=== PATIENT | male | born 1940 | race Caucasian/White ===

== ENCOUNTER 2024-03-14 01:36 | Inpatient (IN) | payer MEDICARE, SELFPAY ==
[2024-03-13 20:29] VITALS: BP 94/51
[2024-03-13 20:44] VITALS: BP 106/53
[2024-03-13 21:04] VITALS: BMI 22.8
[2024-03-13] MEDS: NSS 500 IV (21:07)
[2024-03-13 21:11] LABS: % Basophils 0.3 % (0-2); % Immature Granulocytes 0.5 % (0-0.5); % Lymphocytes 6.7 % (20.5-51.1); % Monocytes 8.8 % (1.7-9.3); % Neutrophils 82.7 % (42.2-75.2); Absolute Eosinophils 0.2 10^3/uL (0-0.7); Absolute Immature Granulocytes 0.1 10^3/uL (0-0.05); Absolute Monocytes 1.4 10^3/uL (0.1-0.6); Absolute Neutrophils 12.7 10^3/uL (1.4-6.5); Hematocrit 32.2 % (39.0-52.0); Hemoglobin 11.1 g/dL (13.0-18.0); Mean Corp Hgb Conc. 34.5 g/dL (33.0-37.0); Mean Corpuscular Hgb 32.1 pg (27.0-31.0); Mean Corpuscular Volume 93.1 fL (80.0-94.0); Mean Platelet Volume 8.6 fL (7.4-10.4); Nucleated Red Blood Cells % 0 % (-); Platelet Count 303 10^3/uL (130-400); Red Blood Cell Count 3.46 10^6/uL (4.70-6.10); Red Cell Dist. Width 12.2 % (11.5-14.5); White Blood Cell Count 15.3 10^3/uL (4.8-10.8)
--- NOTE | 2024-03-13 21:11 | PHANOTE ---
Med Rec Note:
Unable to confirm pt's Eliquis and Prednisone with pharmacy, tried to call [id number] in [place], pharmacy closed at this time. Medications not listed in Dr Peterson, pt not seen recently in [facility].
Eliquis and Prednisone left unconfirmed.
[2024-03-13 21:23] LABS: Lactic Acid 2.2 mmol/L (0.7-2.0)
[2024-03-13 21:30] LABS: ALT (SGPT) 33 U/L (0-50); AST (SGOT) 76 U/L (17-59); Albumin 3.8 g/dl (3.5-5.0); Alkaline Phosphatase 124 U/L (38-126); Blood Urea Nitrogen 45 mg/dl (9-20); Calcium 9.8 mg/dl (8.4-10.2); Carbon Dioxide 23 mmol/L (22-30); Chloride 97 mmol/L (98-107); Estimated Creatinine Clearance 20 ml/min; Glucose 94 mg/dl (70-99); Potassium 5.4 mmol/L (3.5-5.1); Sodium 132 mmol/L (135-145); Total Bilirubin 1.2 mg/dl (0.2-1.3); Total Protein 6.8 g/dl (6.3-8.2); eGFR 19.98
--- NOTE | 2024-03-13 21:55 | ED.GENMED ---
History of Present Illness
General
Chief Complaint: Skin Problem
Time Seen by Provider: 03/13/24 20:41
Travel History
Have you had any contact with someone who has COVID-19?: No
Do you have any symptoms of coronavirus? Fever > 100 degrees, chills, cough, shortness of breath, sore throat, loss of taste or smell, muscle aches, or headache?: No
History of Present Illness
History of Present Illness:
83-year-old male history of hypertension, atrial fibrillation on Eliquis presenting with pain, swelling and discharge from left buttock starting 1 week ago. Patient states that he went to his primary care doctor today and was sent to the ER for
further evaluation. Patient denies chest pain, shortness of breath, dizziness, cough, abdominal pain, nausea, vomiting or urinary symptoms. 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
Past History
Past History
ED Past Medical History: HTN
ED Past Surgical History: None
Social History
Tobacco: Non-smoker
Phy Exam
Physical Exam
Physical Exam:
General: Alert, no acute distress
Head: NCAT
Eyes: clear conjunctiva
Neck: supple
Cardiac: tachycardic, irregularly irregular rhythm, no murmur
Lungs: diffuse wheezing. Speaking full unlabored sentences. No respiratory distress.
Abdomen: soft, nondistended nontender. No rebound or guarding.
: swelling, induration, erythema to left buttock draining purulent discharge. does not involve perineum or scrotum
MSK: no lower extremity edema bilaterally. No deformity
Skin: warm, dry
Neuro: Alert and oriented x3. no focal deficits
Mathematics Lecturer present during physical exam.
Course
Orders/Labs/Results
Orders:
Orders
03/13/24 21:01
CBC/With Diff [Complete Blood Count/With Diff] Urgent
CMP [Comprehensive Metabolic Panel] Urgent
Lactate Level [Lactic Acid] Urgent
Blood Culture Urgent
SHEFALI Source: Blood/Venous
Specimen Description:
03/13/24 21:05
0.9% Sodium Chloride 500 ml [Nss] 500 ml IV BOLUS
03/13/24 21:41
Abdomen/Pelvis wo Contrast CT [CT Abd/pelvis Wo Iv Cont] Urgent
Comment:
Reason For Exam: swelling/pain/discharge right buttock
03/13/24 21:42
MetroNIDAZOLE 250 MG/50 ML [Flagyl 250 mg] 50 ml IV NOW
03/13/24 21:43
EKG [Electrocardiogram (*1)] Urgent
Reason for Study: Tachycardia
03/13/24 21:48
Blood Culture Urgent
SHEFALI Source: Blood/Venous
Specimen Description:
Wound/Abscess/Other Culture Urgent
SHEFALI Source: Abscess
Specimen Description:
Date Specimen was Collected: 03/13/24
Time Specimen was Collected: 21:33
03/13/24 22:36
Ciprofloxacin 400 mg/[id number] [Cipro 400 mg] 200 ml IV NOW
03/14/24 02:00
VANCOMYCIN Pharmacy to Dose [VANCOCIN Pharmacy to Dose] 1 each Pharmacy To Prepare [Call Pharmacy To Prepare] 0 ml IV PER PROTOCOL
Abnormal Lab Results
03/13/24
21:01
WBC 15.3 H 10^3/uL
(4.8-10.8)
RBC 3.46 L 10^6/uL
(4.70-6.10)
Hgb 11.1 L g/dL
(13.0-18.0)
Hct 32.2 L %
(39.0-52.0)
MCH 32.1 H pg
(27.0-31.0)
Abs Immat Gran (auto) 0.1 H 10^3/uL
(0-0.05)
Absolute Neuts (auto) 12.7 H 10^3/uL
(1.4-6.5)
Absolute Lymphs (auto) 1.0 L 10^3/uL
(1.2-3.4)
Absolute Monos (auto) 1.4 H 10^3/uL
(0.1-0.6)
Neutrophils % 82.7 H %
(42.2-75.2)
Lymphocytes % 6.7 L %
(20.5-51.1)
Sodium 132 L mmol/L
(135-145)
Potassium 5.4 H mmol/L
(3.5-5.1)
Chloride 97 L mmol/L
(98-107)
BUN 45 H mg/dl
(9-20)
Creatinine 3.0 H mg/dL
(0.7-1.3)
Lactic Acid 2.2 H mmol/L
(0.7-2.0)
AST 76 H U/L
(17-59)
03/13/24 21:01
03/13/24 21:01
Vital Signs
Initial and Last Documented VS:
Initial Vital Signs
Temp Pulse Resp BP Pulse Ox
99.4 F 117 20 94/51 95
03/13/24 20:29 03/13/24 20:29 03/13/24 20:29 03/13/24 20:29 03/13/24 20:29
Last Documented Vital Signs
Temp Pulse Resp BP Pulse Ox
98.4 F 107 16 116/71 92
03/13/24 23:39 03/13/24 23:34 03/13/24 23:34 03/13/24 23:34 03/13/24 23:34
Comment
Comment:
Patient presents to the Emergency Department with __abscess to buttocks
Number and Complexity of Problems Addressed at the Encounter
� Chronic conditions affecting care:
� Acute Exacerbation and/or Progression of Chronic Illness:
� Differential Diagnosis includes: Perianal abscess, cellulitis
Amount and/or Complexity of Data to be Reviewed and Analyzed
� I performed an independent evaluation of and my interpretation is:
EKG:
CT:
Xrays:
Laboratory Studies: WBC 15.3, lactate 2.2. Creatinine 3 (unknown baseline) with sodium 132 potassium 5.4
Other:
� Review of other/old records reveals:
� Clinical information was obtained by an independent historian:
� Prescriptions/Medications Considered but not given:flox
� Further testing considered but not performed:
Risk of Complications and/or Morbidity or Mortality of Patient Management
� Social Determinants of health affecting care:
� Discussion with other providers (PCP, Hospitalists, Consultants, etc):
� Escalation of care including admission/observation vs risk of discharge considered: 83-year-old male history of atrial fibrillation presenting with increased pain, drainage, and swelling to left buttock over the past 1 week. Patient arrived
tachycardic 90s-120s. Concern for perirectal abscess, started Ciprofloxain and Flagyl. Ordered CT abdomen/pelvis to assess depth of abscess. CT abdomen/pelvis shows decubitus ulcer with cellulitis, no drainable fluid collection. Ordered vancomycin.
Case discussed with hospitalist.
*Critical Care Note
Total Time (30-74mins, 75-104mins- exclusive of procedures): Not Applicable
ED Attending Note
-
Portions of this chart may have been created with voice recognition software.� Occasional wrong word or��sound alike� substitutions may have occurred due to the inherent limitations of voice recognition software.
Discharge Plan
Departure
Patient Disposition: Admit
Date of Disposition: 03/14/24
Time of Disposition: 00:20
Admit to: Telemetry
Presentation/result/management discussed w/ accepting MD/DO: Hospitalist
Discharge Problem:
Infected decubitus ulcer
Prescriptions:
No Action
atorvastatin 10 mg tablet
10 mg PO DAILY
doxazosin 8 mg tablet
8 mg PO DAILY
oxycodone-acetaminophen 10-325 mg tablet
1 tab PO Q6H PRN (Reason: moderate pain)
Patient Comments:
03/13/2024: last filled 03/02/24, 75 tabs for 18 days [id number]
lisinopril 10 mg tablet
10 mg PO DAILY
metoprolol succinate 25 mg tablet extended release 24 hr
25 mg PO DAILY
multivitamin Tablet
1 tab PO DAILY
prednisone 2.5 mg Tablet
1.25 mg PO DAILY
apixaban 5 mg Tablet
5 mg PO BID
[place] 3
500 mg PO DAILY
calcium
100 mg PO DAILY
Referrals:
NICK PIZARRO MD [Family Provider] -
Interventions
Interventions:
*Risk Screen - Suicide Last Done: 03/13/24 20:29
*General Assessment Last Done: 03/13/24 22:31
*Neglect/Abuse Screening Last Done: 03/13/24 22:31
ED- Fall Risk Assessment Last Done: 03/13/24 22:31
*ED COVID-19 Vaccine History Last Done: 03/13/24 22:31
ED-Skin Assessment Last Done: 03/13/24 23:20
Discharge Date and Time
Print Language: PANAMANIAN
[2024-03-13 22:00] VITALS: BP 123/62
[2024-03-13] MEDS: FLAGYL 250 MG 50 IV (22:18)
[2024-03-13 23:00] VITALS: BP 108/65
[2024-03-13] MEDS: CIPRO 400 MG 200 IV (23:31)
[2024-03-13 23:34] VITALS: BP 116/71
[2024-03-14] VITALS (28 sets, daily range): BP systolic 77–123; BP diastolic 44–101; PULSE 101
--- NOTE | 2024-03-14 01:18 | HPS.HSE ---
Family Physician
-
Family Physician: NICK PIZARRO MD
Chief Complaint
-
Left Buttock Abscess/Ulcer, sent in by Dr. Sean Henao
History of Present Illness
83yo M with PMH Atrial Fibrillation on Eliquis, HTN/HLD, COPD (not on home oxygen), CKD (Baseline Cr 1.33 10/2023), Ambulatory Dysfunction/Chronic Back Pain presents to ER with complaint of left buttock wound starting about 10-12 day ago. He reports
past history of possible perirectal abscess drained by colorectal surgeon Dr. Sean Henao in past. He reports increasing pain with indurated sensation. Reports it opening up after squeezing it with purulent drainage about 3 days ago. Today T
101.9 at home. He does report gen weakness and increased falls with dizziness. On one occassion slipped and fall landing on right arm and right knee. Today he was so weak his head hit his cereal bowl. He significnat any significant strike without
LOC. He reports being told by his PCP that his renal function worsening, last Cr as above. Does not follow with lighting adviser. Does not take excessive nsaids. Otherwise denies chest pain, palps, wheezing, cough, abd pain, n/v/d/c, dysuria, hx
retention, calf or leg pain.
ER course: Pt presents BP 94/51, HR 121, RR 33, T 99.4. BUN/Cr 45/3.0, WBC 15.0K, LA 2.2 ->1.7. CT a/p consistent with decubitus ulcer, no acute renal pathology (official read pending). S/p Cipro/flagyl initially changed to IV vancomycin in ER.
Medical History
Past Medical History
Past Medical History: Reports Other
Additional Past Medical History:
Atrial Fibrillation on Eliquis, HTN/HLD, COPD (not on home oxygen), CKD (Baseline Cr 1.33 10/2023), Ambulatory Dysfunction/Chronic Back Pain
Past Surgical History: Reports Other (Lumbar Laminectomy, Left groin hernia repair, B/L Trigger Finger, I&D perirectal abscess)
Social History
Tobacco: Non-smoker
Alcohol: None
Drug: Marijuana
Personal: Single
Living: Alone
Family History
Family History: Not pertinent and Other
Allergies / Home Medications
Allergies reflects when Allergies were last updated in [facility].
Home Medications with original date entered in [facility]
Allergy/Medication List:
Allergies
Allergy/AdvReac Type Severity Reaction Status Date / Time
No Known Allergies Allergy Verified 03/13/24 20:35
Home Medications
[place] 3 500 mg PO DAILY 03/13/24
apixaban 5 mg tablet 5 mg PO BID 03/13/24
atorvastatin 10 mg tablet 10 mg PO DAILY 03/13/24
calcium 100 mg PO DAILY 03/13/24
doxazosin 8 mg tablet 8 mg PO DAILY 03/13/24
lisinopril 10 mg tablet 10 mg PO DAILY 03/13/24
metoprolol succinate 25 mg tablet,extended release 24 hr 25 mg PO DAILY 03/13/24
multivitamin 1 tab PO DAILY 03/13/24
oxycodone-acetaminophen 10 mg-325 mg tablet 1 tab PO Q6H PRN moderate pain 03/13/24
prednisone 2.5 mg tablet 1.25 mg PO DAILY 03/13/24
ipratropium 20 mcg-albuterol 100 mcg/actuation mist for inhalation (Combivent Respimat) 1 puff inhalation Q4H 03/14/24
Review of Systems
-
A 12 point ROS was completed and negative except as noted: Yes
Physical Exam
Vital Signs
Vital Signs
Temp Pulse Resp BP Pulse Ox
98.4 F 107 16 116/71 92
03/13/24 23:39 03/13/24 23:34 03/13/24 23:34 03/13/24 23:34 03/13/24 23:34
Physical Exam
General: Well Developed, Well Nourished and No Apparent Distress
HEENT: NormoCephalic, Moist mucous membranes and Atraumatic
Respiratory: Clear
Cardiac: S1/S2 and Regular Rhythm; No Murmur or Rub
GI: Soft, Non Tender, Non Distended and Normal Bowel Sounds; No Organomegaly
Musculoskeletal: No Clubbing, No Cyanosis and No Edema
Skin: Warm, Dry, Rash and Other (Left buttock ulceration with purulence. Surrounding induration/erythema, + TTP. )
Neuro: Awake, Alert, Oriented, AO x 3, No Motor Deficits and Nonfocal/grossly intact
Hematologic/Lymphatic: No Lymphadenopathy
Psych: Calm
Laboratory Results
-
03/13/24 21:01
03/13/24 21:01
Laboratory Results
Lactic Acid 2.2 mmol/L (0.7-2.0) H 03/13/24 21:01
Total Bilirubin 1.2 mg/dl (0.2-1.3) 03/13/24 21:01
AST 76 U/L (17-59) H 03/13/24 21:01
ALT 33 U/L (0-50) 03/13/24 21:01
Alkaline Phosphatase 124 U/L (38-126) 03/13/24 21:01
Data Reviewed
-
Diagnostic Radiology: Image Personally Visualized and interpreted
CT Scan: Image Personally Visualized and interpreted
Medical Tests (Nuc Med, Echo, EKG etc): Image Personally Visualized and interpreted
Lab Data: Labs Reviewed by me
Old Records: Reviewed
Impression/Plan
-
Severe Sepsis 2/2 Sacral Decubitus Ulcer
- +3/4 SIRS (tachycardia, tachypnea, WBC 15.0K) LA 2.2. Reports Tmax 101.9 at home
- CT a/p with concern for sacral decubitus ulcer r/o abscess. Check CPK
- S/P Cipro/Flagyl in ER then changed to IV vancomycin per pharmacy protocol
- Continue apprporiate analgesia.
- Consult Gen Surgery for evaluation. Eliquis on hold.
TOMEKA on CKD
- BUN/Cr 45/3.0 on admission. No prior baselines in records. Pt has phone records with Cr 1.33 10/2023, was told by PCP he had worsening renal disease
- Suspect pre-renal etiology from sepsis/dehydration vs ATN. Obtain UA
- Continue IVF and trend.
- Check CPK
- Hold nephrotoxics. Hold lisinopril.
- CT imaging reviewed. Obtain renal/bladder ultrasound. Consult nephrology.
Weakness/Falls / Chronic Ambulatory Dysfunction
- Pt reports chronic ambulatory dysfunction, exacerbated by recent infection.
- Check orthostatics. Continue IVF and trend.
- Consult PT for evaluation
Atrial Fibrillation
- Sinus on exam. Continue home BB with hold parameters. Eliquis on hold pending surgical eval.
HTN/HLD
- BP soft 94/51 on arrival. Holding norm-I. Resume home BB/doxazosin with hold parameters.
COPD
- Chronic/stable on home inhaler therapy.
- Pt takes 1.25mg prednisone every other day, trying to wean off.
Diet: NPO pending surgical evaluation
DVT Ppx: SCDs. Holding Eliquis
Code Status: Full Code
[2024-03-14] MEDS: VANCOCIN 300 MG IV (01:46)
[2024-03-14] MEDS: VANCOCIN 300 ML IV (01:46)
[2024-03-14 02:32] LABS: Creatine Phosphokinase 696 U/L (55-170)
[2024-03-14 02:33] LABS: Lactic Acid 1.7 mmol/L (0.7-2.0)
[2024-03-14] MEDS: NSS 1000 IV ×2 (02:57→13:42)
[2024-03-14 04:26] LABS: % Basophils 0.3 % (0-2); % Eosinophils 2.1 % (0-6); % Immature Granulocytes 0.5 % (0-0.5); % Monocytes 10.3 % (1.7-9.3); % Neutrophils 79.8 % (42.2-75.2); Absolute Eosinophils 0.3 10^3/uL (0-0.7); Absolute Immature Granulocytes 0.1 10^3/uL (0-0.05); Absolute Lymphocytes 0.9 10^3/uL (1.2-3.4); Absolute Monocytes 1.3 10^3/uL (0.1-0.6); Absolute Neutrophils 10.4 10^3/uL (1.4-6.5); Hematocrit 27.4 % (39.0-52.0); Hemoglobin 9.6 g/dL (13.0-18.0); Mean Corpuscular Hgb 32.7 pg (27.0-31.0); Mean Corpuscular Volume 93.2 fL (80.0-94.0); Mean Platelet Volume 8.5 fL (7.4-10.4); Nucleated Red Blood Cells % 0 % (-); Platelet Count 258 10^3/uL (130-400); Red Blood Cell Count 2.94 10^6/uL (4.70-6.10); Red Cell Dist. Width 12.3 % (11.5-14.5)
[2024-03-14 04:57] LABS: Blood Urea Nitrogen 46 mg/dl (9-20); Calcium 8.7 mg/dl (8.4-10.2); Carbon Dioxide 24 mmol/L (22-30); Chloride 102 mmol/L (98-107); Creatine Phosphokinase 675 U/L (55-170); Estimated Creatinine Clearance 22 ml/min; Glucose 102 mg/dl (70-99); Magnesium 1.8 mg/dl (1.6-2.3); Potassium 4.8 mmol/L (3.5-5.1); Sodium 131 mmol/L (135-145); eGFR 22.68
[2024-03-14] MEDS: THERAGRAN 1 TABLET PO (07:41)
[2024-03-14] MEDS: TOPROL XL 25 MG PO (07:42)
[2024-03-14] MEDS: LIPITOR 10 MG PO (07:42)
--- NOTE | 2024-03-14 07:51 | EDRN ---
Unable to obtain orthostatic VS at this time as pt states he cannot sit up or stand. His BP was 122/100 supine and 107/69 at semi johansen's position . HR 98-105
[2024-03-14] MEDS: ProAIR HFA INHALER INH (08:44)
[2024-03-14] MEDS: SPIRIVA RESPIMAT 2.5 MCG INH (08:44)
--- NOTE | 2024-03-14 09:18 | W.CON.NEPH ---
Consultation
-
Date/Time Consultation Requested: 03/14/2024 7:00 AM
Date/Time Consultation Performed: 03/14/2024 9:15 AM
Requesting Provider: Dr. Ortiz
Performing Provider: Dr. Carbone
Reason for Consultation: Acute kidney injury
Medical History
-
Chief Complaint: Acute kidney injury
History of Present Illness:
The patient is an 83-year-old male with a past medical history of hypertension maintained on doxazosin lisinopril and metoprolol. He also has a history of dyslipidemia and is maintained on statin therapy. As per review of the chart he has a
history of chronic kidney disease with a baseline creatinine of 1.33 and does not follow with nephrology, the patient has a history of atrial fibrillation and is chronically anticoagulated on Eliquis. He presented to the emergency room with
complaints of a left buttock wound which had commenced approximately 12 days ago. He had previously undergone perirectal abscess draining at the direction of a colorectal surgeon in the past. When he presented to the hospital yesterday he had
previously had purulent drainage 3 days prior and is now febrile on admission. He also reported associated generalized weakness dizziness and falls. When he presented to the emergency room he noted that he was extremely weak and during a fall had
sustained a hit to the head. He presented to the emergency room with hypotension with a blood pressure of 94/51 with associated tachycardia and acute kidney injury with a creatinine of 3. Nephrology was consulted for his acute kidney injury.
Past Medical History
Chronic kidney disease stage IIIa baseline creatinine 1.33 (11/12)
Atrial fibrillation
Hypertension
Dyslipidemia
COPD
History of lumbar laminectomy left inguinal hernia repair previous I&D of perirectal abscess
Social History
Tobacco: Non-Smoker
Alcohol: None
Family History
No chronic kidney disease
Allergies / Home Medications
Allergy/AdvReac Type Severity Reaction Status Date / Time
No Known Allergies Allergy Verified 03/13/24 20:35
�Medication �Instructions �Recorded �Confirmed �Type
apixaban 5 mg tablet 5 mg PO BID 03/13/24 03/14/24 History
atorvastatin 10 mg tablet 10 mg PO DAILY 03/13/24 03/14/24 History
calcium carbonate 500 mg PO DAILY 03/13/24 03/14/24 History
doxazosin 8 mg tablet 8 mg PO DAILY 03/13/24 03/14/24 History
lisinopril 10 mg tablet 10 mg PO DAILY 03/13/24 03/14/24 History
metoprolol succinate 25 mg 25 mg PO DAILY 03/13/24 03/14/24 History
tablet,extended release 24 hr
multivitamin 1 tab PO DAILY 03/13/24 03/14/24 History
omega-3 fatty acids-fish oil 684 1 cap PO DAILY 03/13/24 03/14/24 History
mg-1,200 mg capsule,delayed release
oxycodone-acetaminophen 10 mg-325 1 tab PO Q6HPRN PRN moderate pain 03/13/24 03/14/24 History
mg tablet
prednisone 2.5 mg tablet 1.25 mg PO DAILY 03/13/24 03/14/24 History
ipratropium 20 mcg-albuterol 100 1 puff inhalation R BID 03/14/24 03/14/24 History
mcg/actuation mist for inhalation
(Combivent Respimat)
Review of Systems
-
History Source: Patient
All other systems: Negative unless noted
Constitutional: Fatigue and Other (Weakness ,frequent falls)
EENT: No Symptoms
Respiratory: Other (Chronic shortness of breath with minimal exertion chronic shortness of breath with minimal exertion)
Cardiac: No Symptoms
Abdomen/GI: No Symptoms
: No Symptoms
Musculoskeletal: Other (Sacral ulceration)
Skin: Other (Left buttock decub)
Neurological: No Symptoms
Endocrine: No Symptoms
Hematologic/Lymphatic: No Symptoms
Physical Exam
Vital Signs
Vital Signs
Temp Pulse Resp BP Pulse Ox
98.4 F 98 18 107/69 94
03/13/24 23:39 03/14/24 07:42 03/14/24 07:40 03/14/24 07:42 03/14/24 07:48
Lab Results
03/14/24 04:17
03/14/24 04:17
WBC 13.0 10^3/uL (4.8-10.8) H 03/14/24 04:17
RBC 2.94 10^6/uL (4.70-6.10) L 03/14/24 04:17
Hgb 9.6 g/dL (13.0-18.0) L 03/14/24 04:17
Hct 27.4 % (39.0-52.0) L 03/14/24 04:17
Plt Count 258 10^3/uL (130-400) 03/14/24 04:17
Sodium 131 mmol/L (135-145) L 03/14/24 04:17
Potassium 4.8 mmol/L (3.5-5.1) 03/14/24 04:17
Chloride 102 mmol/L (98-107) 03/14/24 04:17
Carbon Dioxide 24 mmol/L (22-30) 03/14/24 04:17
BUN 46 mg/dl (9-20) H 03/14/24 04:17
Creatinine 2.7 mg/dL (0.7-1.3) H 03/14/24 04:17
eGFR 22.68 03/14/24 04:17
Glucose 102 mg/dl (70-99) H 03/14/24 04:17
Calcium 8.7 mg/dl (8.4-10.2) 03/14/24 04:17
Albumin 3.8 g/dl (3.5-5.0) 03/13/24 21:01
Physical Exam
General: AOx3, Nontoxic , NAD
HEENT: PERRL, EOMI, Anicteric, Conjunctivae Clear, Ear/Nose Intact, Hearing Normal, Oropharynx Clear/Moist, Dentition Intact, Facial Symmetry, Neck Supple, Neck: Trachea Midline, No JVD and No Thyromegaly, no Bruits
Respiratory: Decreased breath sounds bilaterally with expiratory wheezes with normal lung excursion
Cardiac: S1/S2 and Regular Rate/Rhythm
Breast: Deferred by me
Abdomen: Soft, Nontender, Nondistended, Normal Bowel Sounds and No Hepatosplenomegaly
Rectal: Deferred by Provider
Genito-urinary: No Costovertebral Tenderness, distended bladder
Extremities: No Clubbing, No Cyanosis and No Edema
Skin: Left buttock ulceration
Neuro: Nonfocal/Grossly Intact, CN II-XII (Intact) and Strength (Musculoskeletal exam 5 out of 5 both upper and lower extremities)
Hematologic/Lymphatic: No Cervical Lymphadenopathy, No Submandibular Lymphadenopathy and No Supraclavicular Lymphadenopathy
Psych: Insight and judgment appear to be fair
Vascular: plus1 pedal and radial pulses
Data Reviewed
-
CT Scan: Report Reviewed by me (Soft tissue mass in left gluteal fold consistent with ulceration airspace disease in right lower lobe left adrenal gland adenoma no evidence of hydronephrosis)
Labs: Labs Reviewed by me (Basic metabolic panel)
Old Records: Reviewed (Creatinine 1.33 from October 2023)
Assessment/Plan
-
Impression:
Sacral decubitus ulceration with septic physiology
Chronic ambulatory dysfunction with associated increased frequency of falls and weakness
Acute kidney injury
Hyponatremia
CKD stage III (1.33)
History of hypertension
Atrial fibrillation
COPD (chronic steroids)
Plan:
TOMEKA:
-Likely prerenally mediated in setting of BRANDEN inhibitor administration with hemodynamic compromise in the setting of possibly evolving sepsis
-Withhold BRANDEN inhibitor and antihypertensives
-Check fractional excretion of sodium and urinalysis
-Check postvoid bladder scan to assess for obstructive component
-Provide isotonic saline in setting of presumed prerenal insult in conjunction with hemodynamic instability, maintain MAP 65
-Patient with full bladder unable to void suggested catheter which he refused surgeon to put it in during the surgery today for left buttock I&D
-Broad-spectrum antibiotics
-Avoid NSAIDs
Hyponatremia:
-Obtain urine osmolality in setting of hyponatremia
-Suspect hyponatremia is mediated by ADH stimulus in setting of hypotension, will add fluid restriction if exacerbates, should respond to pentecostal of hemodynamic with isotonic saline
[2024-03-14] MEDS: CARDURA 8 MG PO (09:24)
--- NOTE | 2024-03-14 10:28 | CON.GS ---
Consultation
-
Date/Time Consultation Requested: 03/14/2024 8 AM
Date/Time Consultation Performed: 03/14/2024 9 AM
Requesting Provider: Dr. Angulo
Performing Provider: Dr. Rodrigues
Reason for Consultation: Left gluteal abscess
Medical History
-
Chief Complaint: Left gluteal pain
History of Present Illness:
This is an 83-year-old male with a history of atrial fibrillation on Eliquis, hypertension, COPD, CKD who presents to the ER with a left buttock wound that began about 10 days ago he does report a past history of perirectal abscess in the past he
actually saw his traffic monitor specialist recently referred him here to be further evaluated manage. He reports temperature at home today to 101.9 as well as increasing generalized weakness and dizziness. Today he reports some urinary retention and malaise.
The patient denies Chest Pain, Shortness Of Breath, Nausea, Vomiting, changes in bowel habits, unintentional weight loss.
Past Medical History
Past Medical History: Other (Atrial fibrillation on Eliquis, last dose yesterday morning, COPD, CKD.)
Past Surgical History: Other (Lumbar laminectomy, left groin hernia repair, incision and drainage of perirectal abscess.)
Social History
Tobacco: Non-Smoker
Alcohol: None
Drug: Marijuana
Personal: Single
Living: Alone
Family History
Family History: Reviewed & Not Pertinent
Allergies / Home Medications
Allergy/AdvReac Type Severity Reaction Status Date / Time
No Known Allergies Allergy Verified 03/13/24 20:35
�Medication �Instructions �Recorded �Confirmed �Type
apixaban 5 mg tablet 5 mg PO BID 03/13/24 03/14/24 History
atorvastatin 10 mg tablet 10 mg PO DAILY 03/13/24 03/14/24 History
calcium carbonate 500 mg PO DAILY 03/13/24 03/14/24 History
doxazosin 8 mg tablet 8 mg PO DAILY 03/13/24 03/14/24 History
lisinopril 10 mg tablet 10 mg PO DAILY 03/13/24 03/14/24 History
metoprolol succinate 25 mg 25 mg PO DAILY 03/13/24 03/14/24 History
tablet,extended release 24 hr
multivitamin 1 tab PO DAILY 03/13/24 03/14/24 History
omega-3 fatty acids-fish oil 684 1 cap PO DAILY 03/13/24 03/14/24 History
mg-1,200 mg capsule,delayed release
oxycodone-acetaminophen 10 mg-325 1 tab PO Q6HPRN PRN moderate pain 03/13/24 03/14/24 History
mg tablet
prednisone 2.5 mg tablet 1.25 mg PO DAILY 03/13/24 03/14/24 History
ipratropium 20 mcg-albuterol 100 1 puff inhalation R BID 03/14/24 03/14/24 History
mcg/actuation mist for inhalation
(Combivent Respimat)
Review of Systems
-
A 10 point review of systems was completed, and was negative except as per HPI.
Physical Exam
Vital Signs
Temp Pulse Resp BP Pulse Ox
98.4 F 102 16 116/67 94
03/13/24 23:39 03/14/24 09:30 03/14/24 09:30 03/14/24 08:39 03/14/24 07:48
03/13/24 03/14/24 03/15/24
06:59 06:59 06:59
Actual Weight 76.1 kg
Body Mass Index (BMI) 22.8
Lab Results
03/14/24 04:17
03/14/24 04:17
WBC 13.0 10^3/uL (4.8-10.8) H 03/14/24 04:17
Hgb 9.6 g/dL (13.0-18.0) L 03/14/24 04:17
Hct 27.4 % (39.0-52.0) L 03/14/24 04:17
Plt Count 258 10^3/uL (130-400) 03/14/24 04:17
Abs Immat Gran (auto) 0.1 10^3/uL (0-0.05) H 03/14/24 04:17
Neutrophils % 79.8 % (42.2-75.2) H 03/14/24 04:17
Physical Exam
General: Well Developed and Pain
HEENT: Normocephalic
Respiratory: Non Labored Respirations
GI: Soft, Non Tender and Non Distended
Rectal: Other (He has a 1.5 cm open wound on his left buttocks with a significant surrounding induration and inflammation. Significant pain, patient unable to tolerate bedside exam in the ED.)
Data Reviewed
-
CT Scan: Image Personally Visualized and interpreted, Report Reviewed by me and Discussed with Patient
Labs: Labs Reviewed by me
Total Time Spent with Patient (in minutes): 40
Assessment / Plan
-
This is an 83-year-old male who presents with an abscess in the left buttocks with significant surrounding erythema and induration. CT scan demonstrates a collection with subcutaneous air and tracking towards the perineum concerning for necrotizing
soft tissue infection. He has a leukocytosis, he is hyponatremic, TOMEKA on CKD, elevated CK and mild anemia to 9.6.
Will plan for debridement in the operating room today. Will obtain cultures, and place a Fischer preoperatively.
N.p.o., IV fluids, broad-spectrum IV antibiotics.
Risks/Benefits/Alternatives, expected postoperative course and possible complications (bleeding (particularly given his Eliquis use), infection, injury to surrounding structures, acute/chronic pain) discussed at length. Patient wishes to proceed
with surgery. All questions answered. Consent obtained.
I spent roughly 70 minutes in total for the care of this patient today including direct patient care and counseling, reviewing labs, imaging, coordination of care, as well as documentation.
--- NOTE | 2024-03-14 10:39 | W.SUR.PREOP ---
Pre-Operative Surgical Note
-
I have examined this patient prior to the performance of the scheduled procedure.
The patient's condition is unchanged from the time of the current History and
Physical and the patient is able to undergo the scheduled procedure.
--- NOTE | 2024-03-14 10:54 | PHA.VAN.IN ---
Assessment
- Assessment
Renal Function: Appears elevated from baseline (SCR 3-->2.7 vs 1.3 per notes)
Plan
- Plan
Initial / Loading Dose: 1500mg - 03/14 01:46
Maintenance Regimen: dosing by level - give 750mg x1 at 1800
Monitoring: random 03/15 0600
Pharmacokinetics Vancomycin I
- -
Patient Age: 83
Patient Sex: Male
Vancomycin Day #: 1
Indication: Skin And Soft Tissue
Requesting Provider: Dr. Plascencia
Pertinent Antimicrobial Allergies:
NKDA
Height / Weight:
Height 6 ft
Actual Weight 76.1 kg
Pertinent Past Medical History: CKD (Baseline SCR 1.3)
- Vital Signs / Lab Results
Temp Pulse Resp BP Pulse Ox
98.4 F 102 16 116/67 94
03/13/24 23:39 03/14/24 09:30 03/14/24 09:30 03/14/24 08:39 03/14/24 07:48
Lab Results - Hematology
03/13/24 03/14/24
21:01 04:17
WBC 15.3 H 13.0 H
Lab Results - Chemistry
03/13/24 03/14/24
21:01 04:17
BUN 45 H 46 H
Creatinine 3.0 H 2.7 H
Estimated Creat Clear 20 22
Albumin 3.8
03/13/24 03/14/24
21:01 01:57
Lactic Acid 2.2 H 1.7
--- NOTE | 2024-03-14 11:38 | W.IMMPOSTOP ---
Surgical Immed Post Op Note
-
Primary Surgeon: Petr Rodrigues MD
Assisting Surgeon: None
Pre-op Diagnosis: Left gluteal abscess, urinary retention
Post-op Diagnosis: Same
Procedure Performed:
Incision and drainage of left gluteal abscess
Digital rectal exam
Anesthesia Type: MAC
Specimen / Cultures:
1. Wound culture
Estimated Blood Loss: 3 cc
Complications: None
Operative Findings: Fischer placed at the beginning of case. Subcutaneous left gluteal abscess with no extension to the muscle or underlying bone. Significant induration noted as well as multiple abscess cavities that were drained. 2
counterincisions were made, 1 anteriorly towards the perineum and 1 more posterior medial to assist with drainage and setons fashioned using Vesseloops to facilitate drainage. Digital rectal exam was performed, no perirectal abscess palpated or
communication to the abscess cavity noted.
POST OP PLAN:
Imaging: None
Labs: Routine AM
Diet: Okay for regular diet
Analgesia: Tylenol 650mg q6 Porsche, Su 5mg q6 PRN, Dilaudid 0.5mg q2h PRN
Neuro/vascular checks: q4h
AC/AP: Hold Therapeutic AC, Ok for DVT PPx
Activity: Ad Elma
Wound/Incisions/Drains: Routine, change ABD pads twice daily, mesh underwear.
Abx: Continue antibiotics, follow-up wound cultures can narrow as able.
Dispo: RNF
[2024-03-14 13:08] LABS: Urine Albumin Trace (Neg - Trace); Urine Bilirubin Negative (Negative); Urine Character Clear (Clear); Urine Color Yellow; Urine Glucose Negative (Negative); Urine Ketone Negative (Negative); Urine Leukocyte Trace (Negative); Urine Nitrite Negative (Negative); Urine Occult Blood 4+ (Negative); Urine Specific Gravity 1.015 (<1.030); Urine Urobilinogen Negative (Neg - 1+)
[2024-03-14 13:11] LABS: Osmolality Urine 437 mOsm/kg (300-900)
[2024-03-14 13:26] LABS: Urine Granular Cast 0-2 /LPF (0)
[2024-03-14 13:27] LABS: Urine Red Blood Cell 16-20 /HPF (0-2)
[2024-03-14 13:28] LABS: Urine Bacteria Few (Negative)
[2024-03-14 13:48] LABS: Protein/creatinine Ratio 0.2; Urine Protein 32 mg/dl; Urine Sodium 67 mmol/L (30-90)
--- NOTE | 2024-03-14 14:56 | OR.RPT ---
Operative Report
Operative Report
Patient Name: Leonardo Kapadia
: 1940
Date of Operation: 03/14/2024
Preoperative Diagnosis: Left gluteal Abscess, urinary tension
Postoperative Diagnosis: Same
Procedure(s):
Drainage of left gluteal abscess
Surgeon(s):
Dr. Rodrigues
Merchandising Director(s):
None
Anesthesia: General
Estimated Blood Loss: 3 cc
Urine Output: None
Drains/Lines/Implants: Seton x 2
Specimens: Wound Culture
Indication for surgery:
This is an 83-year-old male with a history of A-fib on Eliquis last dose yesterday who presents with leukocytosis, subjective fevers at home, tachycardia, soft blood pressures concerning for sepsis on admission secondary to left gluteal abscess that
was diagnosed clinically and imaged on CT scan. He was unfortunately unable to tolerate bedside examination or drainage so after review of their therapeutic options, they elected to pursue operative incision and drainage.
Operative Findings: Fischer placed at the beginning of case. Subcutaneous left gluteal abscess with no extension to the muscle or underlying bone. Significant induration noted as well as multiple abscess cavities (roughly 15 cc of pus evacuated)
that were drained. 2 counterincisions were made, 1 anteriorly towards the perineum and 1 more posterior medial to assist with drainage and setons fashioned using Vesseloops to facilitate drainage. Digital rectal exam was performed, no perirectal
abscess palpated or communication to the abscess cavity noted.
Details of the operation:
After successful induction of MAC sedation with propofol, a Fischer catheter was placed by the circulating nurse. The patient was then rotated into the right lateral decubitus position and all appropriate pressure points were padded and the patient
was secured to the bed. The area of the left buttocks and perineum was prepped with Betadine and draped in the standard fashion. A team timeout was performed according to hospital protocol. The skin was anesthestized with 10cc of 1% lidocaine with
epinephrine. The draining wound was incised slightly and dissection carried down through subcutaneous tissue. Multiple abscess cavities were identified and deloculated. Wound cultures were sent. The wound was irrigated with sterile saline. The
cavity extended anteriorly towards the perineum and so a counterincision here was made and a red vessel loop was passed through the counterincision and tied with 0 silk. A similar counterincision and vessel loop was fashioned posteriorly as well.
Hemostasis was obtained. There was minimal blood loss. No packing was used, as the cavity was fairly shallow. Wound specimens were sent for Culture. A digital rectal exam was performed the end of the procedure to ensure no perirectal component
given the proximity of the abscess however the rectum was soft and there was no communication to the abscess. The patient tolerated the procedure well, and returned to the Recovery Room in stable condition. Sponge and instrument counts were
correct.
I was the attending physician and present for all critical portions of the case
Petr Rodrigues MD
--- NOTE | 2024-03-14 17:25 | W.PN.UPDATE ---
Update Note
Progress Note Update
Attempted to see patient but he was not in room, taken to imaging - will return for assessment.
--- NOTE | 2024-03-14 18:34 | W.PN.HOSP.TC ---
Today's Communication/Plan
-
I&D today
Continue antibiotics with Vancomycin
Follow cultures
Appreciate surgery and nephrology
Assessment / Plan
Assessment / Plan
Physical Exam
General: Not in acute distress
HEENT: Normocephalic
Respiratory: Clear to Auscultation Bilaterally
Cardiac: S1/S2 and Regular Rhythm
GI: Soft, Non Tender, Non Distended and Normal Bowel Sounds
Musculoskeletal: No Cyanosis and No Edema
Skin: Warm, Dry, Rash and Other (Left buttock ulceration with purulence. Surrounding induration/erythema, + TTP.)
Neuro: Awake, Alert, Oriented, AO x 3, No Motor Deficits and Nonfocal/grossly intact
Psych: Calm

CT Abdomen Pelvis without IV contrast (as per radiologist's report):
'IMPRESSION:
1. There is a soft tissue mass/skin thickening in the left gluteal folds consistent with a developing decubitus ulcer. There is no evidence of an abscess.
2. There is diverticulosis but no evidence of diverticulitis.
3. There is airspace disease in the right lower lobe, likely atelectasis. Early pneumonia cannot be excluded.
4. There is a nodule in the left adrenal gland, likely an adrenal adenoma
5. There is a simple cyst in the left kidney and a probable complicated cyst as well.'

Severe Sepsis 2/2 Sacral Decubitus Ulcer status post Incision and drainage of left gluteal abscess on March 14, 2024
- +3/4 SIRS (tachycardia, tachypnea, WBC 15.0K) LA 2.2. Reports Tmax 101.9 at home
- CT a/p with concern for sacral decubitus ulcer r/o abscess.
- Trend CPK
- S/P Cipro/Flagyl in ER then changed to IV vancomycin per pharmacy protocol
- Continue Vancomycin
- Continue appropriate analgesia.
- Follow cultures
- Consult General Surgery -- I&D as above took place on 03/14/24
- As per Dr. Petr Rodrigues of general surgery - hold Eliquis until tomorrow after patient is seen
TOMEKA on CKD
- BUN/Cr 45/3.0 on admission. No prior baselines in records. Pt has phone records with Cr 1.33 10/2023, was told by PCP he had worsening renal disease
- Suspect pre-renal etiology from sepsis/dehydration vs ATN.
- Continue IVF and trend.
- Trend CPK
- Hold nephrotoxic agents. Hold lisinopril.
- CT imaging reviewed. Obtain renal/bladder ultrasound.
- Consulted nephrology, recommendations appreciated
Weakness/Falls / Chronic Ambulatory Dysfunction
- Pt reports chronic ambulatory dysfunction, exacerbated by recent infection.
- Check orthostatics. Continue IVF and trend.
- Consult PT for evaluation
Atrial Fibrillation
- Sinus on exam. Continue home BB with hold parameters. Eliquis on hold pending surgical clearance to restart.
HTN/HLD
- BP soft 94/51 on arrival. Holding norm-I. Resume home BB/doxazosin with hold parameters.
COPD
- Chronic/stable on home inhaler therapy.
- Pt takes 1.25 mg prednisone every other day, trying to wean off.
Diet: 2 gram sodium diet
DVT Ppx: SCDs. Holding Eliquis
Code Status: Full Code
Anticipated Discharge: > 48 hours
Subjective/Interval History
-
Date of Service: March 14, 2024
Patient was seen and examined. He denied any new symptoms or complaints, was upset this morning and did not want any Fischer catheter or any medical intervention unless as per him, he was 'knocked out.'
Objective Data
-
Vital Signs:
Vital Signs
Temp Pulse Resp BP Pulse Ox
97.4 F 99 20 115/73 95
03/14/24 16:15 03/14/24 16:15 03/14/24 16:15 03/14/24 16:15 03/14/24 16:15
I&O
03/13/24 03/14/24 03/15/24
06:59 06:59 06:59
Intake Total 750 / 750
Output Total 150 / 150
Balance 600 / 600
[2024-03-14] MEDS: VANCOCIN 150 IV (19:04)
[2024-03-15] VITALS (7 sets, daily range): BP systolic 104–140; BP diastolic 58–73; PULSE 77–99; O2SAT 94
[2024-03-15 08:03] LABS: ALT (SGPT) 46 U/L (0-50); AST (SGOT) 60 U/L (17-59); Albumin 2.8 g/dl (3.5-5.0); Alkaline Phosphatase 117 U/L (38-126); Blood Urea Nitrogen 46 mg/dl (9-20); Calcium 8.6 mg/dl (8.4-10.2); Carbon Dioxide 23 mmol/L (22-30); Chloride 105 mmol/L (98-107); Creatine Phosphokinase 242 U/L (55-170); Estimated Creatinine Clearance 29 ml/min; Glucose 115 mg/dl (70-99); Potassium 5.3 mmol/L (3.5-5.1); Sodium 133 mmol/L (135-145); Total Bilirubin 0.3 mg/dl (0.2-1.3); Total Protein 5.5 g/dl (6.3-8.2); eGFR 30.66
[2024-03-15 08:14] LABS: % Basophils 0.2 % (0-2); % Immature Granulocytes 0.9 % (0-0.5); % Monocytes 3.3 % (1.7-9.3); % Neutrophils 92.6 % (42.2-75.2); Absolute Immature Granulocytes 0.1 10^3/uL (0-0.05); Absolute Lymphocytes 0.3 10^3/uL (1.2-3.4); Absolute Monocytes 0.3 10^3/uL (0.1-0.6); Absolute Neutrophils 9.5 10^3/uL (1.4-6.5); Hematocrit 27.1 % (39.0-52.0); Hemoglobin 9.2 g/dL (13.0-18.0); Mean Corp Hgb Conc. 33.9 g/dL (33.0-37.0); Mean Corpuscular Hgb 32.4 pg (27.0-31.0); Mean Corpuscular Volume 95.4 fL (80.0-94.0); Mean Platelet Volume 8.9 fL (7.4-10.4); Nucleated Red Blood Cells % 0 % (-); Platelet Count 276 10^3/uL (130-400); Red Blood Cell Count 2.84 10^6/uL (4.70-6.10); Red Cell Dist. Width 12.3 % (11.5-14.5); White Blood Cell Count 10.3 10^3/uL (4.8-10.8)
--- NOTE | 2024-03-15 08:34 | PHA.VAN.FU ---
Vancomycin Assessment / Plan
- Assessment
Renal Function: SCR Decreasing
WBC's are: WNL
In the past 24 hrs, patient has been: Afebrile
- Assessment - Therapeutic Drug Monitoring
Random Level: 13 - drawn ~11.5H after previous 750mg
- Dosing Plan
Dosing by Level: Re-dose today (Vanc 750mg)
- Monitoring Plan
Random Level: 03/16 06
- Follow Up
Pharmacy will continue to follow.
Vancomycin Follow UP
- -
Patient Age: 83
Patient Sex: Male
Vancomycin Day #: 2
Indication: Skin And Soft Tissue
Requesting Provider: Dr. Plascencia
Pertinent Antimicrobial Allergies:
NKDA
Height / Weight:
Height 6 ft
Actual Weight 76.1 kg
Pertinent Past Medical History: CKD (Baseline SCR 1.3)
- Vital Signs / Lab Results
Temp Pulse Resp BP Pulse Ox
97.4 F 89 18 121/63 96
03/15/24 03:07 03/15/24 03:07 03/15/24 03:07 03/15/24 03:07 03/15/24 03:07
Lab Results - Hematology
03/13/24 03/14/24 03/15/24
21:01 04:17 06:31
WBC 15.3 H 13.0 H 10.3
Lab Results - Chemistry
03/13/24 03/14/24 03/15/24
21:01 04:17 06:31
BUN 45 H 46 H 46 H
Creatinine 3.0 H 2.7 H 2.1 H
Estimated Creat Clear
Albumin 3.8 2.8 L
03/13/24 03/14/24
21:01 01:57
Lactic Acid 2.2 H 1.7
Lab Results - Urine
03/14/24
12:43
Urine Nitrite Cancelled
Urine Nitrite (Reflex) Negative
Ur Leukocyte Esterase Cancelled
Leukocyte Esterase Rfl Trace A
Microbiology Results
03/13/24 21:48 Blood Culture - Preliminary
Blood/Venous No Growth in 24 hours- Final report to follow
03/13/24 21:01 Blood Culture - Preliminary
Blood/Venous No Growth in 24 hours- Final report to follow
03/14/24 13:20 Gram Stain - Preliminary
Sacral
03/14/24 04:17 Gram Stain - Preliminary
Buttock
03/13/24 21:48 Gram Stain - Preliminary
Abscess
Therapeutic Drug Monitoring
Random Vancomycin 13.0 ug/ml 03/15/24 06:32
[2024-03-15] MEDS: ProAIR HFA INHALER 2 PUFF INH (09:09)
[2024-03-15] MEDS: SPIRIVA RESPIMAT 2.5 MCG 2 PUFF INH (09:10)
[2024-03-15] MEDS: VANCOCIN 150 IV (10:17)
[2024-03-15] MEDS: LIPITOR 10 MG PO (10:18)
[2024-03-15] MEDS: THERAGRAN 1 TABLET PO (10:19)
[2024-03-15] MEDS: TOPROL XL 25 MG PO (10:19)
[2024-03-15] MEDS: CARDURA 8 MG PO (10:19)
--- NOTE | 2024-03-15 11:17 | W.PN.GS2 ---
Today's Communication / Plan
-
`
Assessment / Plan
-
Assessment: 83 y/o male POD#1 s/p drainage left gluteal abscesses
AFVSS
surgical site clean, no further purulence, no fluctuance
cultures pending - stain with G+ cocci
Plan: start local wound care - sitz baths or shower to clean surgical wounds; vessel loops to remain in place; simply cover with ABD pads to absorb drainage
vanco - cultures pending
maintain parra for now
Subjective Data
-
Date of Service: March 15, 2024
pt seen and examined
sitting in chair at bedside
post op pain controlled and improved from preop
offers no additional concerns/questions
Objective Data
-
Intake and Output
03/14/24 03/15/24 03/16/24
06:59 06:59 06:59
Intake Total 1750 / 1750
Output Total 725 / 725
Balance 1025 / 1025
Intake:
Oral fluids 400 / 400
IV fluids (Total) 1200 / 1200
normal saline 300 / 300
IV piggybacks 150 / 150
Output:
Urine, Parra 725 / 725
Vital Signs
Temp Pulse Resp BP Pulse Ox
97.6 F 80 16 118/73 93
03/15/24 07:30 03/15/24 09:10 03/15/24 09:10 03/15/24 07:30 03/15/24 09:10
Lab Results
03/15/24 06:31
03/15/24 06:31
Calcium 8.6 mg/dl (8.4-10.2) 03/15/24 06:31
Magnesium 1.8 mg/dl (1.6-2.3) 03/14/24 04:17
Total Bilirubin 0.3 mg/dl (0.2-1.3) 03/15/24 06:
AST 60 U/L (17-59) H 03/15/24 06:
ALT 46 U/L (0-50) 03/15/24 06:
Alkaline Phosphatase 117 U/L (38-126) 03/15/24 06:
Total Protein 5.5 g/dl (6.3-8.2) L 03/15/24:
Albumin 2.8 g/dl (3.5-5.0) L 03/15/24 06:31
Physical Exam
-
left gluteal region with open surgical wounds, serous/nonpurlent/nonodorous drainage; vessel loops in place
--- NOTE | 2024-03-15 13:21 | CON.ID ---
Consultation
-
Date/Time Consultation Requested: 03/15/24 8:07
Date/Time Consultation Performed: 03/15/24 13:22
Requesting Provider: Dr Ortiz
Performing Provider: Dr Westfall
Reason for Consultation: Left Gluteal Abscess s/p I&D
Chief Complaint / Past History
Chief Complaint
Left Buttock Abscess/Ulcer,
History of Present Illness
Mr Kapadia is an 83 year old male with history of COPD not on home O2, ambulatory dysfunction who presented here 03/14 for a left buttock wound which began 10-12 days prior to arrival. Reports a history of a possible perirectal abscess - remote.
Area is painful, there has been purulent drainage, developed fevers on the day of arrival. Increasing weakness. No: chest pain, wheezing, cough, abdominal pain, nausea, vomiting, diarrhea, constipation, dysuria, urinary retention.
Since arrival he has been afebrile, bp stable, wbc count initially 15 now 10.3, hgb 9.2, plt 276, L shift has increased since arrival now 92%, eos no longer present, Cr was 3.0 on arrival now 2.1, CK 700 on arrival now 240, lactic acid 1.7, UA
without pyuria, 03/14 CT scan: decubitus ulcer, no diverticulitis, atlectasis, currently on vancomycin, taken to the OR 03/14: multiple abscess cavities IDd and deloculated, cultures sent,
Past History
Additional Past Medical History:
Eliquis, HTN/HLD, COPD (not on home oxygen), CKD (Baseline Cr 1.33 10/2023), Ambulatory Dysfunction/Chronic Back Pain
Additional Past Surgical History:
(Lumbar Laminectomy, Left groin hernia repair, B/L Trigger Finger, I&D perirectal abscess)
Allergy History:
No Known Allergies Allergy (Verified 03/13/24 20:35)
Medications Reviewed: Yes
Social History
Tobacco: Non-Smoker
Alcohol: None
Drug: Marijuana
Family History
Family History: Not Pertinent
Review of Systems
Review of Systems
General: Negative Fever or Chills
All systems: All other systems were reviewed and were negative
Vital Signs
Temp Pulse Resp BP Pulse Ox
97.6 F 90 18 104/61 94
03/15/24 11:37 03/15/24 11:37 03/15/24 11:37 03/15/24 11:37 03/15/24 11:37
Physical Exam
Physical Exam
Constitutional: No Acute Distress
Cardiovascular: Regular Rate and S1/S2; Negative Murmur or Rub
Pulmonary: Clear and Symmetric; Negative Wheezes, Rales or Rhonchi
Gastrointestinal: Soft, Non Tender, Non Distended and Normal Bowel Sounds
Skin: Warm and Dry; Negative Rash or Jaundice
Wound: Other
Lab / Diagnostic Study Results
03/15/24 06:31
03/15/24 06:31
Abs Immat Gran (auto) 0.1 10^3/uL (0-0.05) H 03/15/24 06:31
Absolute Neuts (auto) 9.5 10^3/uL (1.4-6.5) H 03/15/24 06:31
Absolute Lymphs (auto) 0.3 10^3/uL (1.2-3.4) L 03/15/24 06:31
Absolute Monos (auto) 0.3 10^3/uL (0.1-0.6) 03/15/24 06:31
Absolute Basos (auto) 0.0 10^3/uL (0-0.2) 03/15/24 06:31
Immature Gran % 0.9 % (0-0.5) H 03/15/24 06:31
Neutrophils % 92.6 % (42.2-75.2) H 03/15/24 06:31
Lymphocytes % 3.0 % (20.5-51.1) L 03/15/24 06:31
Monocytes % 3.3 % (1.7-9.3) 03/15/24 06:31
Eosinophils % 0.0 % (0-6) 03/15/24 06:31
Basophils % 0.2 % (0-2) 03/15/24 06:31
Lactic Acid 1.7 mmol/L (0.7-2.0) 03/14/24 01:57
Microbiology Results
Micro:
03/13/24 21:48 Wound Culture - Preliminary
Abscess Streptococcus pyogenes
Gram Stain - Preliminary
03/14/24 04:17 Wound Culture - Preliminary
Buttock Streptococcus pyogenes
Gram Stain - Preliminary
03/14/24 13:20 Anaerobic Culture - Preliminary
Sacral Culture pending. Anaerobic cultures are examined after 3
days incubation. Additional information to follow.
03/14/24 13:20 Wound Culture - Preliminary
Sacral Streptococcus pyogenes
Gram Stain - Preliminary
03/13/24 21:48 Blood Culture - Preliminary
Blood/Venous No Growth in 24 hours- Final report to follow
03/13/24 21:01 Blood Culture - Preliminary
Blood/Venous No Growth in 24 hours- Final report to follow
03/14/24 16:33 MRSA Screen - Pending
Nose
Assessment / Plan
L Gluteal Abscess
Leukocytosis - resolved; persistent L shift
- 03/14 cultures GAS x3
- 03/13 blood cultures x2 no growth
- start linezolid - 2-3 days course
- start unasyn stop vancomycin
- eventual transition to oral therapy
- off loading
- follow clinically
[2024-03-15] MEDS: FLUSH (NSS) 1 FLUSH IV (15:15)
[2024-03-15] MEDS: UNASYN IV (15:15)
--- NOTE | 2024-03-15 15:28 | W.PN.NEPH.PH ---
Today's Communication / Plan
-
Maintain Parra
Follow-up BMP
IVFs off
Assessment/Plan
-
Impression:
Sacral decubitus ulceration with septic physiology
Chronic ambulatory dysfunction with associated increased frequency of falls and weakness
Acute kidney injury
Hyponatremia
CKD stage III (1.33)
History of hypertension
Atrial fibrillation
COPD (chronic steroids)
S/P I and D for buttock decubiti on 03/14
Plan:
TOMEKA:
-Likely prerenally mediated in setting of BRANDEN inhibitor administration with hemodynamic compromise in the setting of possibly evolving sepsis
-Creatinine improving to 2.1, non oliguric via parra
-Withhold BRANDEN inhibitor and antihypertensives, bp still low side
-Checked fractional excretion of sodium and urinalysis
-Kidney function improving following Parra catheter placed following the OR procedure
-ID directing Unasyn and linezolid for strep pyogenes wound culture
-Avoid NSAIDs
Hyponatremia:
-Improving to 133 following Parra catheter insertion
-Obtained urine osmolality (437) in setting of hyponatremia
-Suspect hyponatremia is mediated by ADH stimulus in setting of hypotension, will add fluid restriction if exacerbates
-
-
Date of Service: March 15, 2024
CC / HPI / ROS
-
Chief Complaint:
Acute kidney injury
Hyponatremia
History of Present Illness:
Creatinine improved to 2.1
Sodium up to 133
Hemodynamically more stable
Review of Systems:
Nonoliguric via Parra
No reported chest pain or shortness of breath
Labs
-
Labs:
WBC 10.3 10^3/uL (4.8-10.8) 03/15/24 06:31
RBC 2.84 10^6/uL (4.70-6.10) L 03/15/24 06:31
Hgb 9.2 g/dL (13.0-18.0) L 03/15/24 06:31
Hct 27.1 % (39.0-52.0) L 03/15/24 06:31
Plt Count 276 10^3/uL (130-400) 03/15/24 06:31
Sodium 133 mmol/L (135-145) L 03/15/24 06:31
Potassium 5.3 mmol/L (3.5-5.1) H 03/15/24 06:31
Chloride 105 mmol/L (98-107) 03/15/24 06:31
Carbon Dioxide 23 mmol/L (22-30) 03/15/24 06:31
BUN 46 mg/dl (9-20) H 03/15/24 06:31
Creatinine 2.1 mg/dL (0.7-1.3) H 03/15/24 06:31
eGFR 30.66 03/15/24 06:31
Glucose 115 mg/dl (70-99) H 03/15/24 06:31
Calcium 8.6 mg/dl (8.4-10.2) 03/15/24 06:31
Albumin 2.8 g/dl (3.5-5.0) L 03/15/24 06:31
Physical Exam
-
Vital Signs:
Vital Signs
Temp Pulse Resp BP Pulse Ox
97.6 F 90 18 104/61 94
03/15/24 11:37 03/15/24 11:37 03/15/24 11:37 03/15/24 11:37 03/15/24 11:37
Cardiovascular:: Regular rate and rhythm
Respiratory:: Bilateral: Coarse
Lung Excursion:: Normal
Abdomen:: Nontender
Bowel Sounds:: Normal
Extremity Edema:: None: Bilateral:
Parra Catheter: Yes
--- NOTE | 2024-03-15 15:54 | W.PN.HOSP.TC ---
Today's Communication/Plan
-
Continue antibiotics
Follow cultures
Renal function improving
Assessment / Plan
Assessment / Plan
Physical Exam
General: Not in acute distress
HEENT: Normocephalic
Respiratory: Clear to Auscultation Bilaterally
Cardiac: S1/S2 and Regular Rhythm
GI: Soft, Non Tender, Non Distended and Normal Bowel Sounds
Musculoskeletal: No Cyanosis and No Edema
Skin: Warm, Dry, Rash and Other (Left buttock ulceration with purulence. Surrounding induration/erythema, + TTP.)
Neuro: Awake, Alert, Oriented, AO x 3, No Motor Deficits and Nonfocal/grossly intact
Psych: Calm

CT Abdomen Pelvis without IV contrast (as per radiologist's report):
'IMPRESSION:
1. There is a soft tissue mass/skin thickening in the left gluteal folds consistent with a developing decubitus ulcer. There is no evidence of an abscess.
2. There is diverticulosis but no evidence of diverticulitis.
3. There is airspace disease in the right lower lobe, likely atelectasis. Early pneumonia cannot be excluded.
4. There is a nodule in the left adrenal gland, likely an adrenal adenoma
5. There is a simple cyst in the left kidney and a probable complicated cyst as well.'

Severe Sepsis 2/2 Sacral Decubitus Ulcer status post Incision and drainage of left gluteal abscess on March 14, 2024
- +3/4 SIRS (tachycardia, tachypnea, WBC 15.0K) LA 2.2. Reports Tmax 101.9 at home
- CT a/p with concern for sacral decubitus ulcer r/o abscess.
- Trend CPK --> improving
- S/P Cipro/Flagyl in ER then changed to IV vancomycin per pharmacy protocol, now Vancomycin stopped
- Started on Linezolid and Unasyn -- continue
- Continue appropriate analgesia.
- Follow cultures
- Consult General Surgery -- I&D as above took place on 03/14/24
- As per Dr. Mccracken of general surgery - hold Eliquis until tomorrow (03/15/24) morning
TOMEKA - IMPROVING - on CKD
- BUN/Cr 45/3.0 on admission. No prior baselines in records. Pt has phone records with Cr 1.33 10/2023, was told by PCP he had worsening renal disease
- Suspect pre-renal etiology from sepsis/dehydration vs ATN.
- Continue IVF and trend.
- Trend CPK
- Hold nephrotoxic agents. Hold lisinopril.
- CT imaging reviewed
- Consulted nephrology, recommendations appreciated
Weakness/Falls / Chronic Ambulatory Dysfunction
- Pt reports chronic ambulatory dysfunction, exacerbated by recent infection.
- Check orthostatics. Continue IVF and trend.
- Consult PT for evaluation
Atrial Fibrillation
- Sinus on exam. Continue home BB with hold parameters. Eliquis on hold pending surgical clearance to restart.
HTN/HLD
- BP soft 94/51 on arrival. Holding norm-I. Resume home BB/doxazosin with hold parameters.
COPD
- Chronic/stable on home inhaler therapy.
- Pt takes 1.25 mg prednisone --> need to confirm the exact dose patient is taking
Diet: 2 gram sodium diet
DVT Ppx: SCDs. Holding Eliquis (as above)
Code Status: Full Code
Anticipated Discharge: 24 - 48 hours
Subjective/Interval History
-
Date of Service: March 15, 2024
Patient was seen and examined. He reported no new significant symptoms.
Objective Data
-
Labs:
Laboratory Results
03/15/24
06:31
WBC 10.3
Hgb 9.2 L
Hct 27.1 L
Plt Count 276
Sodium 133 L
Potassium 5.3 H
Chloride 105
Carbon Dioxide 23
BUN 46 H
Creatinine 2.1 H
Glucose 115 H
Calcium 8.6
Total Bilirubin 0.3
AST 60 H
ALT 46
Alkaline Phosphatase 117
Vital Signs:
Vital Signs
Temp Pulse Resp BP Pulse Ox
97.6 F 90 18 104/61 94
03/15/24 11:37 03/15/24 11:37 03/15/24 11:37 03/15/24 11:37 03/15/24 11:37
I&O
03/14/24 03/15/24 03/16/24
06:59 06:59 06:59
Intake Total 1750 / 1750
Output Total 725 / 725
Balance 1025 / 1025
--- NOTE | 2024-03-15 17:10 | W.PN.UPDATE ---
Update Note
Progress Note Update
Psychiatry consulted for concerns of agitation - pt leaving room today for testing when I arrived, however was calm & cooperative, conversing with staff meaningfully. Has not been agitated and not exhibiting significant signs of an agitated
delirium, would defer psychiatric intervention at this time. Can return to reassess if agitation returns.
[2024-03-15] MEDS: ZYVOX 600 MG PO (20:58)
[2024-03-16 03:00] VITALS: BP 131/61
[2024-03-16] MEDS: UNASYN IV ×2 (03:17→13:39)
[2024-03-16 06:47] LABS: % Basophils 0.1 % (0-2); % Eosinophils 0.4 % (0-6); % Immature Granulocytes 0.6 % (0-0.5); % Lymphocytes 6.3 % (20.5-51.1); % Monocytes 8.4 % (1.7-9.3); % Neutrophils 84.2 % (42.2-75.2); Absolute Immature Granulocytes 0.1 10^3/uL (0-0.05); Absolute Lymphocytes 0.7 10^3/uL (1.2-3.4); Absolute Monocytes 0.9 10^3/uL (0.1-0.6); Absolute Neutrophils 9.2 10^3/uL (1.4-6.5); Hematocrit 27.1 % (39.0-52.0); Mean Corp Hgb Conc. 33.2 g/dL (33.0-37.0); Mean Corpuscular Hgb 31.9 pg (27.0-31.0); Mean Corpuscular Volume 96.1 fL (80.0-94.0); Mean Platelet Volume 8.8 fL (7.4-10.4); Nucleated Red Blood Cells % 0 % (-); Platelet Count 288 10^3/uL (130-400); Red Blood Cell Count 2.82 10^6/uL (4.70-6.10); Red Cell Dist. Width 12.4 % (11.5-14.5); White Blood Cell Count 10.9 10^3/uL (4.8-10.8)
[2024-03-16 07:00] VITALS: BP 130/73
[2024-03-16 07:24] LABS: ALT (SGPT) 67 U/L (0-50); AST (SGOT) 76 U/L (17-59); Albumin 2.9 g/dl (3.5-5.0); Alkaline Phosphatase 114 U/L (38-126); Blood Urea Nitrogen 52 mg/dl (9-20); Calcium 8.9 mg/dl (8.4-10.2); Carbon Dioxide 25 mmol/L (22-30); Chloride 103 mmol/L (98-107); Creatine Phosphokinase 109 U/L (55-170); Estimated Creatinine Clearance 32 ml/min; Glucose 99 mg/dl (70-99); Potassium 5.2 mmol/L (3.5-5.1); Sodium 133 mmol/L (135-145); Total Bilirubin 0.2 mg/dl (0.2-1.3); Total Protein 5.6 g/dl (6.3-8.2); eGFR 34.57
[2024-03-16] MEDS: SPIRIVA RESPIMAT 2.5 MCG 2 PUFF INH (08:50)
[2024-03-16] MEDS: ProAIR HFA INHALER 2 PUFF INH (08:51)
[2024-03-16] MEDS: TOPROL XL 25 MG PO (09:31)
[2024-03-16] MEDS: CARDURA 8 MG PO (09:31)
[2024-03-16] MEDS: LIPITOR 10 MG PO (09:31)
[2024-03-16] MEDS: THERAGRAN 1 TABLET PO (09:31)
[2024-03-16] MEDS: ZYVOX 600 MG PO (09:31)
--- NOTE | 2024-03-16 10:13 | PN.CDI ---
CDI
- -
CDI:
Physician Documentation Request
Admit Date: 03/14/24 01:36
Dear Doctor Angel,
Patient admitted for sepsis.
03/15 Hospitalist PN: 'Severe Sepsis 2/2 Sacral Decubitus Ulcer status post Incision and drainage of left gluteal abscess on March 14, 2024'
Physician documentation of the type and location of wounds is required for compliant documentation. Based on the above clinical findings and your assessment, please provide the following in your progress note:
Please also include the stage* of the ulcer:
- Stage 1 - Skin intact, non-blanchable redness
- Stage 2 - Partial thickness loss of dermis, includes intact or open blister
- Stage 3 - Full thickness tissue not including bone, tendon or muscle
- Stage 4 - Full thickness tissue loss, including exposed bone, tendon or muscle
- Unstageable - Full thickness loss in which the base of the ulcer is covered by slough (yellow, vasquez, love, green or brown) and/or eschar (vasquez, brown or black) in the wound bed.
- Unable to determine
Use of terms such as suspected, likely, concern for, or probable (associated with a specific diagnosis that is being evaluated, monitored, or treated as if it exists) are acceptable and can be coded in the inpatient setting, when documented at the
time of discharge.
Thank you,
Cary Eaton RN, BSN
CDI Specialist
Available via [place] text
Please use your independent medical judgment in providing your response.
*Source: National Pressure Ulcer Advisory Panel (NPUAP)
--- NOTE | 2024-03-16 10:37 | W.PN.ID1 ---
Date of Service
Date of Service: March 16, 2024
Today's Communication
See below.
Assessment / Plan
L Gluteal Abscess -group A strep
Leukocytosis - resolved; persistent L shift
- 03/14 cultures GAS x3
- 03/13 blood cultures x2 no growth
- start linezolid - 2-3 days course
- Continue Linezolid and unasyn (d2)
- at time of discharge, transition to Augmentin.
- off loading
- follow clinically
Chief Complaint
-: Cellulitis
Subjective / Review of Systems
Feeling better. Surgeon looked at wound this am and said it looks clean.
Vital Signs / Physical Exam
Vital Signs
Vital Signs
Temp Pulse Resp BP Pulse Ox
97.5 F 60 16 130/73 96
03/16/24 07:00 03/16/24 08:50 03/16/24 08:50 03/16/24 07:00 03/16/24 08:50
Physical Exam
Constitutional: No Acute Distress and Comfortable
Pulmonary: Clear
Gastrointestinal: Soft, Non Tender and Non Distended
Neurological: AO x 3
Objective Data
Lab Data
Lab Results
03/16/24 06:17
03/16/24 06:17
Estimated Creat Clear 32 ml/min 03/16/24 06:17
Lactic Acid 1.7 mmol/L (0.7-2.0) 03/14/24 01:57
Total Bilirubin 0.2 mg/dl (0.2-1.3) 03/16/24 06:17
AST 76 U/L (17-59) H 03/16/24 06:17
ALT 67 U/L (0-50) H 03/16/24 06:17
Alkaline Phosphatase 114 U/L (38-126) 03/16/24 06:17
Most recent labs reviewed.
Micro Results:
03/14/24 16:33 MRSA Screen - Final
Nose No Methicillin Resistant Staphylococcus aureus isolated.
03/13/24 21:48 Blood Culture - Preliminary
Blood/Venous No Growth in 48 hours- Final report to follow
03/13/24 21:01 Blood Culture - Preliminary
Blood/Venous No Growth in 48 hours- Final report to follow
03/13/24 21:48 Wound Culture - Preliminary
Abscess Streptococcus pyogenes
Gram Stain - Preliminary
03/14/24 04:17 Wound Culture - Preliminary
Buttock Streptococcus pyogenes
Gram Stain - Preliminary
03/14/24 13:20 Anaerobic Culture - Preliminary
Sacral Culture pending. Anaerobic cultures are examined after 3
days incubation. Additional information to follow.
03/14/24 13:20 Wound Culture - Preliminary
Sacral Streptococcus pyogenes
Gram Stain - Preliminary
[2024-03-16 11:00] VITALS: BP 128/70
[2024-03-16] MEDS: MIRALAX 17 GRAMS PO (12:14)
--- NOTE | 2024-03-16 12:32 | W.PN.GS2 ---
Addendum entered and electronically signed by Raúl Perez MD 03/16/24 13:15:
I saw and examined the patient.
The [facility] Nurse's note was reviewed and I agree with the note.
Comment: Improving. Pain controlled. On exam dressings are dry, area is indurated and tender, setons in place, no drainage or fluctuance, no foul odor. OK for DC from surg standpoint. Will need to f/u with Dr Rodrigues for the wound and with Urology
for the parra.
Original Note:
Today's Communication / Plan
-
Continue local wound care
Assessment / Plan
-
Assessment: 83 y/o male POD#2 s/p drainage left gluteal abscesses with seton drains placed
AFVSS
surgical site clean, no further purulence, no fluctuance
cultures pending - preliminary with strep p.
progressing well from surgical standpoint
Plan: continue local wound care - sitz baths or shower to clean surgical wounds; vessel loops to remain in place; simply cover with ABD pads to absorb drainage
vanco - cultures pending
void trial planned tomorrow morning
PT/OT evaluating, CM consulted to assist with d/c planning. VNA for wound care vs skilled rehab
Continue abx
Ok to resume PO anticoagulation
F/U as outpatient with Dr. Rodrigues, d/c instructions updated
Subjective Data
-
Date of Service: March 16, 2024
Patient seen and examined at bedside with Dr. Perez. Some soreness to the buttock but manageable. No fevers/chills.
Objective Data
-
Intake and Output
03/15/24 03/16/24 03/17/24
06:59 06:59 06:59
Intake Total 1750 / 1750 390 / 390
Output Total 725 / 725 800 / 800
Balance 1025 / 1025 -410 / -410
Intake:
Oral fluids 400 / 400 120 / 120
IV fluids (Total) 1200 / 1200
normal saline 300 / 300
IV piggybacks 150 / 150 270 / 270
Output:
Urine, Parra 725 / 725 800 / 800
Vital Signs
Temp Pulse Resp BP Pulse Ox
97.5 F 60 16 130/73 96
03/16/24 07:00 03/16/24 08:50 03/16/24 08:50 03/16/24 07:00 03/16/24 08:50
Lab Results
03/16/24 06:17
03/16/24 06:17
Calcium 8.9 mg/dl (8.4-10.2) 03/16/24 06:17
Magnesium 1.8 mg/dl (1.6-2.3) 03/14/24 04:17
Total Bilirubin 0.2 mg/dl (0.2-1.3) 03/16/24 06:17
AST 76 U/L (17-59) H 03/16/24 06:17
ALT 67 U/L (0-50) H 03/16/24 06:17
Alkaline Phosphatase 114 U/L (38-126) 03/16/24 06:17
Total Protein 5.6 g/dl (6.3-8.2) L 03/16/24 06:17
Albumin 2.9 g/dl (3.5-5.0) L 03/16/24 06:17
Physical Exam
-
NAD
left gluteal region with open surgical wounds, serous/nonpurlent/nonodorous drainage; vessel loops in place
parra with clear, yellow urine
--- NOTE | 2024-03-16 13:16 | CM ---
CM consult requested for discharge planning.
Pt lives alone in his apartment at [facility] (Address: [address] [place] [address]. Attempted to speak with Leonardo regarding discharge plan - home with home care vs. SNF, however he was sleeping and not responding to my attempts to wake
him with my voice. Will need to follow up re: discharge plan when patient awakens.
--- NOTE | 2024-03-16 13:16 | W.PN.HOSP.TC ---
Today's Communication/Plan
-
Discharge today
Assessment / Plan
Assessment / Plan
Physical Exam
General: Not in acute distress
HEENT: Normocephalic
Respiratory: Clear to Auscultation Bilaterally
Cardiac: S1/S2 and Regular Rhythm
GI: Soft, Non Tender, Non Distended and Normal Bowel Sounds
Musculoskeletal: No Cyanosis and No Edema
Skin: Warm, Dry, Rash and Other (Left buttock ulceration with purulence. Surrounding induration/erythema, + TTP.)
Neuro: Awake, Alert, Oriented, AO x 3, No Motor Deficits and Nonfocal/grossly intact
Psych: Calm

CT Abdomen Pelvis without IV contrast (as per radiologist's report):
'IMPRESSION:
1. There is a soft tissue mass/skin thickening in the left gluteal folds consistent with a developing decubitus ulcer. There is no evidence of an abscess.
2. There is diverticulosis but no evidence of diverticulitis.
3. There is airspace disease in the right lower lobe, likely atelectasis. Early pneumonia cannot be excluded.
4. There is a nodule in the left adrenal gland, likely an adrenal adenoma
5. There is a simple cyst in the left kidney and a probable complicated cyst as well.'

Severe Sepsis 2/2 Sacral Decubitus Ulcer status post Incision and drainage of left gluteal abscess on March 14, 2024
Concern for Stage 1 Decubitus Ulcer
Left Gluteal Abscess - with growth of group A strep
Leukocytosis
- CT a/p with concern for sacral decubitus ulcer r/o abscess.
- Trended CPK --> NOW NORMALIZED
- S/P Cipro/Flagyl in ER then changed to IV vancomycin per pharmacy protocol, now Vancomycin stopped
- Started on Linezolid and Unasyn while inpatient
- On discharge: Augmentin 875 BID x 7 more days (to make total 10 days of antibiotics)
- Continue appropriate analgesia.
- Follow cultures
- Consult General Surgery -- I&D as above took place on 03/14/24
- Resume Eliquis
TOMEKA - IMPROVING - on CKD
- BUN/Cr 45/3.0 on admission. No prior baselines in records. Pt has phone records with Cr 1.33 10/2023, was told by PCP he had worsening renal disease
- Suspect pre-renal etiology from sepsis/dehydration vs ATN.
- Continue IVF and trend.
- Hold nephrotoxic agents. Hold lisinopril on discharge.
- Although creatinine not back to baseline, patient can be discharged today with repeat BMP and PCP follow-up on Tuesday, March 19, 2024 (I discussed this with Dr. Grant glass toughening operator via [place] [employer] on 03/16/24 and he is in agreement)
- Voiding trial prior to discharge today.
- CT imaging reviewed
- Consulted nephrology, recommendations appreciated
Weakness/Falls / Chronic Ambulatory Dysfunction
- Pt reports chronic ambulatory dysfunction, exacerbated by recent infection.
- Orthostatics vital signs negative
- Consult PT for evaluation
Atrial Fibrillation
- Sinus on exam. Continue home BB with hold parameters.
- Continue Eliquis
HTN/HLD
- BP soft 94/51 on arrival -- now improved. Holding norm-I as above. Resume home BB/doxazosin with hold parameters.
COPD
- Chronic/stable on home inhaler therapy.
- Pt takes 1.25 mg prednisone --> need to confirm the exact dose patient is taking
Diet: 2 gram sodium diet
DVT Ppx: SCDs. Holding Eliquis (as above)
Code Status: Full Code
More than 30 minutes spent in discharge including
Final examination of the patient
Summarizing hospital stay
Instructions for continuing care to all relevant caregivers
Preparation of discharge records, prescriptions, and referral forms
Total time spent (in minutes): 39
Anticipated Discharge: Today
Subjective/Interval History
-
Date of Service: March 16, 2024
Objective Data
-
Labs:
Laboratory Results
03/16/24
06:17
WBC 10.9 H
Hgb 9.0 L
Hct 27.1 L
Plt Count 288
Sodium 133 L
Potassium 5.2 H
Chloride 103
Carbon Dioxide 25
BUN 52 H
Creatinine 1.9 H
Glucose 99
Calcium 8.9
Total Bilirubin 0.2
AST 76 H
ALT 67 H
Alkaline Phosphatase 114
Vital Signs:
Vital Signs
Temp Pulse Resp BP Pulse Ox
97.5 F 60 16 130/73 96
03/16/24 07:00 03/16/24 08:50 03/16/24 08:50 03/16/24 07:00 03/16/24 08:50
I&O
03/15/24 03/16/24 03/17/24
06:59 06:59 06:59
Intake Total 1750 / 1750 390 / 390
Output Total 725 / 725 800 / 800
Balance 1025 / 1025 -410 / -410
[2024-03-16] MEDS: LOKELMA 5 GRAM PO (13:28)
--- NOTE | 2024-03-16 13:41 | W.PN.NEPH.PH ---
Today's Communication / Plan
-
voiding trial
Assessment/Plan
-
Impression:
Sacral decubitus ulceration with septic physiology
Chronic ambulatory dysfunction with associated increased frequency of falls and weakness
Acute kidney injury
Hyponatremia
CKD stage III (1.33)
History of hypertension
Atrial fibrillation
COPD (chronic steroids)
S/P I and D for buttock decubiti on 03/14
Plan:
-voiding trial
-flomax 0.4mg daily
-follow BMP
-abx per primary team
-
-
Date of Service: March 16, 2024
CC / HPI / ROS
-
Chief Complaint:
Acute kidney injury
Hyponatremia
History of Present Illness:
Creatinine improved to 1.9
Sodium up to 133 stable
Hemodynamically more stable
Review of Systems:
Nonoliguric via Fischer
No reported chest pain or shortness of breath
feels constipated
Labs
-
Labs:
WBC 10.9 10^3/uL (4.8-10.8) H 03/16/24 06:17
RBC 2.82 10^6/uL (4.70-6.10) L 03/16/24 06:17
Hgb 9.0 g/dL (13.0-18.0) L 03/16/24 06:17
Hct 27.1 % (39.0-52.0) L 03/16/24 06:17
Plt Count 288 10^3/uL (130-400) 03/16/24 06:17
Sodium 133 mmol/L (135-145) L 03/16/24 06:17
Potassium 5.2 mmol/L (3.5-5.1) H 03/16/24 06:17
Chloride 103 mmol/L (98-107) 03/16/24 06:17
Carbon Dioxide 25 mmol/L (22-30) 03/16/24 06:17
BUN 52 mg/dl (9-20) H 03/16/24 06:17
Creatinine 1.9 mg/dL (0.7-1.3) H 03/16/24 06:17
eGFR 34.57 03/16/24 06:17
Glucose 99 mg/dl (70-99) 03/16/24 06:17
Calcium 8.9 mg/dl (8.4-10.2) 03/16/24 06:17
Albumin 2.9 g/dl (3.5-5.0) L 03/16/24 06:17
Physical Exam
-
Vital Signs:
Vital Signs
Temp Pulse Resp BP Pulse Ox
97.5 F 60 16 130/73 96
03/16/24 07:00 03/16/24 08:50 03/16/24 08:50 03/16/24 07:00 03/16/24 08:50
Cardiovascular:: Regular rate and rhythm
Respiratory:: Bilateral: Coarse
Lung Excursion:: Normal
Abdomen:: Nontender and Soft
Bowel Sounds:: Normal
Extremity Edema:: None: Bilateral:
[2024-03-16] MEDS: FLOMAX 0.400000000000000022 MG PO (13:51)
--- NOTE | 2024-03-16 14:39 | CM ---
I spoke with Leonardo regarding discharge and discussed potential needs. He has a friend who will pick him up; Leonardo anticipates discharge in AM, however if discharged today, he feels that would work for him.
Leonardo lives alone in an apartment and has a friend who is an RN who is able to help him with dressing changes as needed. He has a walker and an electric wheelchair to get around. He advised he has groceries at home. No additional needs identified.
[2024-03-16 15:00] VITALS: BP 126/72
--- NOTE | 2024-03-16 17:17 | W.DS.TRANS ---
DC Summary - Development Writer
-
Discharge Instructions:
Discharge Diagnosis/Procedures Severe Sepsis Secondary to Sacral Decubitus
Ulcer status post Incision and drainage of left
gluteal abscess on March 14, 2024
Concern for Stage 1 Decubitus Ulcer
Left Gluteal Abscess - with growth of group A
strep
Leukocytosis
Acute Kidney Injury - IMPROVING - on Chronic
Kidney Disease
Left Adrenal Gland Nodule
Kidney Cyst
Diverticulosis
Developing Decubitus Ulcer
Airspace disease in the right lower lobe,
possibly atelectasis vs. early pneumonia
Weakness/Falls / Chronic Ambulatory Dysfunction
Atrial Fibrillation
Hypertension
Hyperlipidemia
Chronic Obstructive Pulmonary Disease
Diet Low Sodium,2 Gram Sodium,Low Cholesterol,Low Fat
Activity As tolerated,With assistance
Driving Restrictions No driving
Blood Work Recheck CBC, BMP and Magnesium with your primary
care provider, by Tuesday03/19/24 at the latest
.
Wound Care Soak your wound in warm water 2-3 times a day
for 20 min if able, otherwise wash well in the
shower. Keep wound covered with a pad to absorb
drainage. There are small drains in place which
will be removed by your surgeon as an outpatient
during your follow up appointment.
Instructions: How to Do a Sitz Bath
Stand-Alone Forms:
Changes to Home Medications: Yes
Discharge Medications:
DC Medications w/original date entered in [employer]
apixaban 5 mg tablet 5 mg PO BID Blood Clot Prevention/Tx 03/13/24
atorvastatin 10 mg tablet 10 mg PO DAILY High Cholesterol 03/13/24
calcium carbonate 500 mg PO DAILY Supplement 03/13/24
doxazosin 8 mg tablet 8 mg PO DAILY Urinary Issue 03/13/24
lisinopril 10 mg tablet 10 mg PO DAILY Blood Pressure 03/13/24
metoprolol succinate 25 mg tablet,extended release 24 hr 25 mg PO DAILY Blood Pressure 03/13/24
multivitamin 1 tab PO DAILY Supplement 03/13/24
omega-3 fatty acids-fish oil 684 mg-1,200 mg capsule,delayed release 1 cap PO DAILY Supplement 03/13/24
oxycodone-acetaminophen 10 mg-325 mg tablet 1 tab PO Q6HPRN PRN moderate pain 03/13/24
prednisone 2.5 mg tablet 1.25 mg PO DAILY Lung/Breathing Issues 03/13/24
ipratropium 20 mcg-albuterol 100 mcg/actuation mist for inhalation (Combivent Respimat) 1 puff inhalation R BID Lung/Breathing Issues 03/14/24
amoxicillin 875 mg-potassium clavulanate 125 mg tablet 1 tab PO Q12H 7 days #14 tabs 03/16/24
polyethylene glycol 3350 17 gram oral powder packet (HealthyLax) 17 g PO DAILYPRN PRN constipation #100 ea 03/16/24
tamsulosin 0.4 mg capsule 0.4 mg PO DAILY #30 caps 03/16/24
Home Medication Changes
Amoxicillin-Pot Clavulanate, HealthyLax and Tamsulosin are new medications.
Lisinopril and oxycodone-acetaminophen are on hold.
Pending Results: Yes
Additional Pending Results:
Microbiology results from hospitalization.
Total time spent discharging patient (in min): 39
--- NOTE | 2024-03-19 10:24 | W.DCSUMMARY ---
Discharge Summary
Discharge Data
Date of Admission: 03/14/24
Date of Discharge: 03/16/24
Total time spent discharging patient (in min): 39
-
Pending Results: Yes (Microbiology results from hospitalization.)
Hospital Course
83 y/o male with past medical history of possible perirectal abscess drained by colorectal surgeon Dr. Sean Henao, Atrial Fibrillation on Eliquis, HTN/HLD, COPD (not on home oxygen), CKD (Baseline Cr 1.33 10/2023), Ambulatory
Dysfunction/Chronic Back Pain presented to the emergency room with complaints of left buttock wound starting about 10-12 days prior presentation, as well as pain in the same area. He noted that he had a fever of 101.9 F at home. He also reported
generalized weakness as well. He was started on antibiotics, and surgery and infectious disease were consulted. Nephrology was consulted for acute kidney injury. On March 14, 2024, patient had an incision and drainage of left gluteal abscess.
Patient had a Fischer catheter placed or urinary retention. Infectious Disease was consulted and recommended Linzeolid and Unasyn while inpatient, but transitioning to Augmentin at the time of discharge. Nephrology mentioned that patient's creatinine
trend could be followed up outpatient to ensure it was improving.
Discharge Plan
-
Patient Disposition: Home (Routine Discharge)
Discharge Diagnosis/Procedures: Severe Sepsis Secondary to Sacral Decubitus Ulcer status post Incision and drainage of left gluteal abscess on March 14, 2024
Concern for Stage 1 Decubitus Ulcer
Left Gluteal Abscess - with growth of group A strep
Leukocytosis
Acute Kidney Injury - IMPROVING - on Chronic Kidney Disease
Left Adrenal Gland Nodule
Kidney Cyst
Diverticulosis
Developing Decubitus Ulcer
Airspace disease in the right lower lobe, possibly atelectasis vs. early pneumonia
Weakness/Falls / Chronic Ambulatory Dysfunction
Atrial Fibrillation
Hypertension
Hyperlipidemia
Chronic Obstructive Pulmonary Disease
Condition: Fair
Diet: Low Fat, Low Cholesterol, Low Sodium and 2 Gram Sodium
Activity: With assistance and As tolerated
Driving Restrictions: No driving
Blood Work: Recheck CBC, BMP and Magnesium with your primary care provider, by Tuesday03/19/24 at the latest.
Wound Care: Soak your wound in warm water 2-3 times a day for 20 min if able, otherwise wash well in the shower. Keep wound covered with a pad to absorb drainage. There are small drains in place which will be removed by your surgeon as an outpatient
during your follow up appointment.
Activity Restrictions/Additional Instructions:
Call your surgeon or return to the ER if you develop a fever >100.5
Instructions: How to Do a Sitz Bath
Referrals:
NICK PIZARRO MD [Family Provider] - in less than 1 week
Oscar Miguel MD [Active] - in three to four days (Urinary Retention follow-up)
Petr Rodrigues MD [Active] - in two to three weeks
Additional Discharge Medication Instructions: Amoxicillin-Pot Clavulanate, HealthyLax and Tamsulosin are new medications.
Lisinopril and oxycodone-acetaminophen are on hold.
Prescriptions:
New
amoxicillin-pot clavulanate 875-125 mg tablet
1 tab PO Q12H 7 Days Qty: 14 0RF
tamsulosin 0.4 mg Capsule
0.4 mg PO DAILY Qty: 30 1RF
polyethylene glycol 3350 [HealthyLax] 17 gram Powder In Packet
17 g PO DAILYPRN PRN (Reason: constipation) Qty: 100 1RF
Continued
atorvastatin 10 mg tablet
10 mg PO DAILY
doxazosin 8 mg tablet
8 mg PO DAILY
metoprolol succinate 25 mg tablet extended release 24 hr
25 mg PO DAILY
multivitamin Tablet
1 tab PO DAILY
calcium carbonate 500 mg calcium (1,250 mg) Tablet
500 mg PO DAILY
prednisone 2.5 mg Tablet
1.25 mg PO DAILY
omega-3 fatty acids-fish oil 684-1,200 mg Capsule,Delayed Release(Dr/Ec)
1 cap PO DAILY
apixaban 5 mg Tablet
5 mg PO BID
Patient Comments:
PATIENT BUYS FROM HEATH
Combivent Respimat 20-100 mcg/actuation Mist
1 puff INHALATION R BID
Held
oxycodone-acetaminophen 10-325 mg tablet
1 tab PO Q6HPRN PRN (Reason: moderate pain)
Hold Instructions: Resume on 04/25/24. Do not resume this medication until and unless your outpatient physician says it is okay to resume this medication.
Patient Comments:
03/13/2024: last filled 03/02/24, 75 tabs for 18 days [id number]
lisinopril 10 mg tablet
10 mg PO DAILY
Hold Instructions: Resume on 04/25/24. Do not resume this medication until and unless your outpatient physicians say you can resume this medication.
Discharge Orders:
Discharge Patient (As Directed); Ordered 03/16/24
Ordered By: Fernando Ortiz
Discharge Date and Time
Discharge Date/Time: 03/16/24 19:38
Print Language: COLOMBIAN
== END 2024-03-16 19:38 | disposition home or self-care (01) | DRG 872 ==
LOC: 4 WEST ACU 01:36
PROVIDERS: Specialist; Surgery; ADMITTING PHYSICIAN Internal Medicine; ATTENDING PHYSICIAN Hospitalist; EMERGENCY PHYSICIAN Emergency Medicine; FAMILY PHYSICIAN Internal Medicine
PROC: 0DJDXZZ Inspection of Lower Intestinal Tract, External Approach (ICD-10-PCS; 2024-03-14)
PROC: 0J990ZZ Drainage of Buttock Subcutaneous Tissue and Fascia, Open Approach (ICD-10-PCS; 2024-03-14)
DX: A41.9 Sepsis, unspecified organism (principal); L02.31 Cutaneous abscess of buttock; N17.9 Acute kidney failure, unspecified; E87.1 Hypo-osmolality and hyponatremia; R65.20 Severe sepsis without septic shock; Z79.01 Long term (current) use of anticoagulants; I12.9 Hypertensive chronic kidney disease with stage 1 through stage 4 chronic kidney disease, or unspecified chronic kidney disease; N18.31 Chronic kidney disease, stage 3a; E78.5 Hyperlipidemia, unspecified; J44.9 Chronic obstructive pulmonary disease, unspecified; K57.30 Diverticulosis of large intestine without perforation or abscess without bleeding; L89.151 Pressure ulcer of sacral region, stage 1
CPT/HCPCS: 74176; 76770; 80048; 80053; 80202; 81003; 81015; 82550; 82570; 83605; 83735; 83935; 84156; 84300; 85025; 87040; 87070; 87075; 87077; 87147; 87205; 94640; 96361; 96374; 96375; 97530; 99285